=== PATIENT | female | born 1995 | race Caucasian/White ===

== ENCOUNTER 2018-06-16 16:37 | Emergency (ER) | END 2018-06-16 20:11 | disposition home or self-care (01) ==

== ENCOUNTER 2019-01-19 11:05 | Inpatient (IN) | payer MEDICAID ==
[~2019-01-19] VITALS: Ht 152.4 cm; Wt 71.5 kg
[2019-01-19] MEDS ORDERED: PREN1COM15 PO (11:13)
[2019-01-19] MEDS ORDERED: MISOPROSTOL 200 MCG TAB PR PRN (12:00)
[2019-01-19] MEDS ORDERED: OXYTOCIN 30 UNITS/LR 500 ML IV PRN (12:00)
[2019-01-19] MEDS ORDERED: CARBOPROST 250 MCG INJ IM PRN (12:00)
[2019-01-19] MEDS ORDERED: METHYLERGONOVINE 0.2 MG INJ IM PRN (12:00)
[2019-01-19] MEDS ORDERED: LIDOCAINE 1% (MPF) 30 ML INJ INJ PRN (12:00)
[2019-01-19] MEDS ORDERED: OXYTOCIN 30 UNITS/LR 500 ML IV SCH ×2 (12:00)
[2019-01-19] MEDS ORDERED: metFORMIN 500 MG TAB PO ONE (13:30)
[2019-01-19] MEDS: LACTATED RINGER'S 1,000 ML IV SCH ×3 (14:08→23:19)
[2019-01-19] MEDS: OXYTOCIN 30 UNITS/LR 500 ML IV SCH (18:41)
[2019-01-19] MEDS: DEXTROSE 5%-LR 1,000 ML IV SCH ×2 (20:54→22:10)
[2019-01-19] MEDS ORDERED: LACTATED RINGER'S 1,000 ML IV PRN (22:07)
[2019-01-19] MEDS ORDERED: IBUPROFEN 600 MG TAB PO PRN (22:30)
[2019-01-20] MEDS ORDERED: MINERAL OIL LIGHT 10 ML VIAL TOP PRN (04:00)
--- NOTE | 2019-01-20 04:01 | PREAC ---
Date/Time of Note Date/Time of Note DATE: 01/20/19 TIME: 04:00 Anesthesia Eval and Record Evaluation Time Pre-Procedure Interview DATE: 01/20/19 TIME: 04:00 Age 23 Sex female NPO: 8 hrs Preoperative diagnosis intrauterine Planned procedure labor epidural Past Medical History Past Medical History: Includes : : (1), Para: (0), Gestational age: (39), Gestational diabetes Surgery & Anesthesia Issues No known issue Meds Anticoagulation: No Beta Colt within 24 hr: No Reason Beta Colt not given: Pt. not on B-Colt Reported Medications Vit #105/Iron/FA/Dha (Prena1 True Combo Pack) 1 Each Combo..pkg, 1 EACH PO 01/19/19 Current Medications Lactated Ringer's 1,000 ml @ 125 mls/hr Q8H IV Last administered on 01/19/19at 23:19; Admin Dose 125 MLS/HR; Start 01/19/19 at 11:58 Lidocaine (Xylocaine 1% (Mpf)) 30 ml ONCE PRN INJ .EPISIOTOMY; Start 01/19/19 at 12:00 Oxytocin/Lactated Ringer's 500 ml @ 500 mls/hr ONCE POST IV ; Start 01/19/19 at 12:00 Oxytocin/Lactated Ringer's 500 ml @ 125 mls/hr POST IV ; Start 01/19/19 at 12:00 Oxytocin/Lactated Ringer's 500 ml @ 0 mls/hr ONCE PRN IV .VAGINAL BLEEDING; Start 01/19/19 at 12:00 Methylergonovine Maleate (Methergine) 0.2 mg ONCE PRN IM .VAGINAL BLEEDING; Start 01/19/19 at 12:00 Carboprost Tromethamine (Hemabate) 250 mcg ONCE PRN IM .VAGINAL BLEEDING; Start 01/19/19 at 12:00 Misoprostol (Cytotec) 1,000 mcg ONCE PRN ME .VAGINAL BLEEDING; Start 01/19/19 at 12:00 Dextrose/Lactated Ringer's 1,000 ml @ 125 mls/hr Q8H IV ; Start 01/19/19 at 13:02 Oxytocin/Lactated Ringer's 500 ml @ 0 mls/hr FOR AUGMENTATION IV Last administered on 01/19/19at 18:41; Admin Dose 1 MLS/HR; Start 01/19/19 at 18:00 Lactated Ringer's 1,000 ml @ 2,000 mls/hr Q30M PRN IV .ANESTHESIA Last administered on 01/20/19at 03:55; Admin Dose 2,000 MLS/HR; Start 01/19/19 at 22:07 Mineral Oil (Muri-Lube) 10 ml ONCE PRN TOP delivery; Start 01/20/19 at 04:00; Stop 01/20/19 at 06:00 Ibuprofen (Motrin) 600 mg ONCE PRN PO .PAIN 1-5; Start 01/19/19 at 22:30 Meds reviewed: Yes Allergies Coded Allergies: No Known Allergy (Unverified , 01/19/19) Allergies Reviewed: Yes Labs/Studies Labs Reviewed: Reviewed by anesthesiologist Result Diagram: 01/19/19 1200 01/19/19 1200 Laboratory Tests 01/19/19 12:00 Blood Bank Test 01/19/19 12:00 Antibody Screen NEGATIVE Blood Type O POSITIVE Rh Immune Globulin Candidate NO test: N/A Pre-procedure Exam Airway: Adequate mouth opening, Adequate thyromental dist Mallampati: Mallampati II Teeth: Normal Lung: Normal Heart: Normal ASA Physical Status ASA physical status: 2 Emergency: None Planned Anesthetic Neuraxial: Epidural Planned Pain Management Epidural, Parenteral pain med Pre-operative Attestations Prior to commencing anesthesia and surgery, the patient was re-evaluated, there was verification of: *The patient's identity *The results of appropriate recent lab work and preoperative vital signs *The above evaluation not changing prior to induction *Anesthetic plan, risk benefits, alternative and complications discussed with patient/family; questions answered; patient/family understands, accepts and wishes to proceed. BENY SMITH MD Jan 20, 2019 04:01
[2019-01-20] MEDS ORDERED: FENTAnyl 2MCG/ML-ROPIV 0.2% 100 ML ONE (04:07)
[2019-01-20] MEDS ORDERED: DIPHENHYDRAMINE 50 MG INJ IV PRN (04:30)
[2019-01-20] MEDS ORDERED: NALOXONE (0.4 MG/ML) INJ IV PRN (04:30)
[2019-01-20] MEDS ORDERED: ONDANSETRON 4 MG INJ IV PRN (04:30)
[2019-01-20] MEDS: DEXTROSE 5%-LR 1,000 ML IV SCH ×3 (04:46→21:02)
--- NOTE | 2019-01-20 05:37 | PAC ---
Date/Time of Note Date/Time of Note DATE: 01/20/19 TIME: 05:36 Post-Anesthesia Notes Post-Anesthesia Note Activity: WNL Respiratory function: WNL Cardiovascular function: WNL Mental status: Baseline Pain reasonably controlled: Yes Hydration appropriate: Yes Nausea/Vomiting absent: Yes Comments BP: 112/63 HR: 74 RR: 15 T: 98 SaO2: 99% BENY SMITH MD Jan 20, 2019 05:37
[2019-01-20] MEDS: OXYTOCIN 30 UNITS/LR 500 ML IV SCH (12:31)
[2019-01-20] MEDS: FENTAnyl 2MCG/ML-ROPIV 0.2% 100 ML BAG EPI SCH ×2 (13:50→20:15)
[2019-01-20] MEDS: LACTATED RINGER'S 1,000 ML IV SCH (20:21)
[2019-01-20] MEDS ORDERED: ACETAMINOPHEN 325 MG TAB PO ONE (20:30)
[2019-01-20] MEDS ORDERED: AMPICILLIN 2 GM/NS (PMX) 100 ML IV ONE (20:30)
[2019-01-21] MEDS ORDERED: OXYTOCIN 30 UNITS/LR 500 ML IV SCH
[2019-01-21] MEDS ORDERED: CEFAZOLIN 2 GM/50 ML (PMX) 50 ML IVPB ONE (00:10)
--- NOTE | 2019-01-21 00:29 | OPR ---
Operative Report Planned Procedure Procedure date Jan 21, 2019 Procedure(s) Primary Performed by see signature line Fur Repairer: FREDRICK ANDRE MD Anesthesiologist: ROSSANA BRANDT MD Pre-procedure diagnosis IUP at 39 weeks. Failure to progress. CPD. GDM [id number] Anesthesia Type: [id number] epidural Post-Procedure Post-procedure diagnosis Same Findings Viable baby girl weighing 4040 grams or 8# 15 oz, 20.25" long, and with Apgars of 8/9. Estimated Blood Loss: 600 - 700 mls Specimen(s) none Grafts/Implant(s) none Complication(s) Focal uterine atony with a small round area on the anterior abdominal wall where the placenta had been attached. Pt was given Methergine, Cytotec and Hemabate and the area finally began to contract. Pt Condition post procedure: stable Disposition: PACU Procedure Description Under satisfactory spinal anesthesia, the patient was prepped and draped and placed in a supine position, tilted to the left. Pfannenstiel incision was made removing the old scar, and carried through the subcutaneous tissue. Bleeders brought under control with electrocautery. Fascia incised to the length of the incision. Rectus muscles from the fascia, divided midline. Peritoneum exposed, entered through a transverse incision. Transverse incision was made in the lower segment of the uterus. Amniotic sac ruptured. Clear amniotic fluid noted. The head was easily delivered with gentle fundal pressure. The mouth and nares were bulb suctioned. The rest of the baby was then easily delivered. The cord was doubly clamped and cut. The baby was brought to the warmer and the team for immediate attention. The placenta was delivered manually in tact. Uterine cavity was cleaned with wet sponge and drainage established. Uterus closed in 2 layers using #1 chromic in continuous fashion. There was not a lot of noticeable bleeding however there was a round 6 cm area on the anterior abdominal wall where the placenta had been implanted that exhibited focal uterine atony. The rest of the uterus contracted well. The pt was given the usual Pitocin and then also a dose of Methergine, 800mcg of Cytotec and a dose of Hemabate. The area eventually contracted. Peritoneal cavity irrigated with warm saline. Sponge, needle and instrument count reported to be correct. Abdominal peritoneum closed with 2-0 Chromic continuously. Rectus muscle approximated with the same suture. Fascia closed with 0-Vicryl. The subcutaneous tissue was irrigated and closed with 2-0 Chromic and skin was closed with 3-0 Monocryl in a subcuticular stitch. Steristrips with Mastosol were placed. Estimated blood loss 700 mL. Urine was clear JOLEEN BEY MD Jan 21, 2019 00:29
[2019-01-21] MEDS ORDERED: AMPICILLIN 1 GM/NS (PMX) 50 ML IV SCH (00:30)
--- NOTE | 2019-01-21 00:30 | HP ---
Date/Time of Note Date/Time of Note DATE: 01/21/19 TIME: 00:29 OB - History Hx of Present Free Text/Dictation 23 y.o. G1 with an IUP at 36w 6d came in with what seemed to be a clear h/o rupture of membranes. We could not verify it as there was a forebag, no pooling and the nitrazine test was negative however I decided to keep her as she was going to be induced the following day for gestational diabetes. Chief Complaint: SROM Estimated Due Date: Jan 27, 2019 : 1 Para: 0 Care: Good Care Ultrasounds: Normal mid trimester US Obstetrical Complications: Gestational Diabetes (On Metformin 500 mg q day) Medical Complications: None Other Concerns: PMHx: none. PSHx: none. NKDA. Past Family/Social History * Past Medical, Surgical, Family and Obstetric Histories reviewed from chart. Blood Type: O+ Rubella: immune RPR/VDRL: Negative GBS Status: Negative HBsAG: Negative OB Admission Exam Vital Signs Vital Signs Vital Signs Date Temp Pulse Resp B/P (MAP) Pulse Ox O2 O2 Flow FiO2 Time Delivery Rate 01/20/19 100.7 20:42 Physical Exam HEENT: WNL Heart: Rhythm Normal Lungs: Clear Abdomen: WNL Extremities: Normal Reflexes: Normal Cervical Dilatation: 3cm Effacement: Other (90%) Station: -2 Membranes: Intact Amniotic Fluid: Clear Heart Rate: 130's Accelerations: Accelerations Present Decelerations: No Decelerations Varibility: Moderate Contractions on Admission: >10 Minutes Apart Intensity: Mild Last 72 hourBlood Glucose Bedside Glucose - 72 Hours Test 01/19/19 16:17 01/19/19 20:27 01/20/19 03:56 01/20/19 08:47 Bedside 99 84 77 100 Glucose mg/dL (70-220) mg/dL (70-220) mg/dL (70-220) mg/dL (70-220) Test 01/20/19 13:01 01/20/19 17:06 01/20/19 21:00 Bedside 89 93 79 Glucose mg/dL (70-220) mg/dL (70-220) mg/dL (70-220) Last 72 hours Lab Results CBC & BMP 01/19/19 12:00 OB Assessment/Plan Reason for admission: induction of labor Other Assessment: Gestational diabetes. Plan: Induction Induction Method: per Pitocin Protocol JOLEEN BEY MD Jan 21, 2019 00:30
[2019-01-21] MEDS ORDERED: OXYTOCIN 10 UNIT INJ ONE ×4 (00:33→01:15)
[2019-01-21] MEDS ORDERED: PHENYLephrine (100 MCG/ML) 5ML SYG ONE (00:59)
[2019-01-21] MEDS ORDERED: morphine SULFATE/PF (10 MG/10 ML) INJ ONE (01:02)
[2019-01-21] MEDS ORDERED: FENTAnyl 50 MCG/ML VIAL ONE ×2 (01:11→01:19)
[2019-01-21] MEDS ORDERED: MIDAZOLAM 1 MG/ML 2 ML INJ ONE (01:17)
[2019-01-21] MEDS ORDERED: OXYCODONE/ACETAMINOPHEN (5/325) TAB PO PRN (02:00)
[2019-01-21] MEDS ORDERED: CARBOPROST 250 MCG INJ IM PRN (02:00)
[2019-01-21] MEDS ORDERED: OXYTOCIN 30 UNITS/LR 500 ML IV PRN (02:00)
[2019-01-21] MEDS ORDERED: MISOPROSTOL 200 MCG TAB PR PRN (02:00)
[2019-01-21] MEDS ORDERED: NACL 0.9% 3 ML SYG IV SCH (02:00)
[2019-01-21] MEDS ORDERED: CEFAZOLIN 2 GM/50 ML (PMX) 50 ML IVPB SCH ×2 (02:00)
[2019-01-21] MEDS ORDERED: METHYLERGONOVINE 0.2 MG INJ IM PRN (02:00)
[2019-01-21] MEDS ORDERED: LANOLIN HPA 1 PKT TOP PRN (02:00)
--- NOTE | 2019-01-21 02:17 | PAC ---
Date/Time of Note Date/Time of Note DATE: 01/21/19 TIME: 02:17 Post-Anesthesia Notes Post-Anesthesia Note Last documented vital signs Vital Signs Date Temp Pulse Resp B/P (MAP) Pulse Ox O2 O2 Flow FiO2 Time Delivery Rate 01/20/19 100.7 20:42 Activity: WNL Respiratory function: WNL Cardiovascular function: WNL Mental status: Baseline Pain reasonably controlled: Yes Hydration appropriate: Yes Nausea/Vomiting absent: Yes Comments BP:134/56,P:88,Spo2:100%, T:98,8 ROSSANA BRANDT MD Jan 21, 2019 02:17
[2019-01-21] MEDS ORDERED: NALOXONE (0.4 MG/ML) INJ IV PRN (02:30)
[2019-01-21] MEDS ORDERED: ONDANSETRON 4 MG INJ IV PRN (02:30)
[2019-01-21] MEDS ORDERED: DIPHENHYDRAMINE 50 MG INJ IV PRN (02:30)
[2019-01-21] MEDS ORDERED: morphine 2 MG INJ IV PRN (02:30)
[2019-01-21] MEDS: OXYTOCIN 30 UNITS/LR 500 ML IV SCH ×3 (02:52→22:00)
[2019-01-21] MEDS: KETOROLAC 30 MG INJ IV PRN ×4 (03:05→23:54)
[2019-01-21] MEDS ORDERED: ACETAMINOPHEN 325 MG TAB PO PRN (03:30)
[2019-01-21] MEDS: LACTATED RINGER'S 1,000 ML IV SCH ×3 (03:36→19:30)
[2019-01-21] MEDS: ACETAMINOPHEN 325 MG TAB PO PRN (03:55)
[2019-01-21 04:30] VITALS: BP 115/52; PULSE 91; RESP 20
[2019-01-21] MEDS ORDERED: MISOPROSTOL 200 MCG TAB SL ONE (06:00)
[2019-01-21] MEDS: IBUPROFEN 800 MG TAB PO SCH ×3 (06:00→22:00)
[2019-01-21 08:20] VITALS: BP 116/57; PULSE 89; RESP 17
[2019-01-21] MEDS: CEFAZOLIN 2 GM/50 ML (PMX) 50 ML IVPB SCH ×3 (08:26→23:35)
[2019-01-21 12:06] VITALS: BP 105/58; PULSE 73; RESP 17
--- NOTE | 2019-01-21 14:04 | QN ---
Documentation Comment POD #0 Pt feels much better but uterus still feels tender.Bleeding is minimal. is going well. T= 97.2 BP 105/58 Incision is clean, dry and intact.Uterus is at the umbilicus. Lochia minimal. Ext 2+ edema, NT. WBC 14.8 Hgb 9.2 Plts 116K P: Continue care. JOLEEN BEY MD Jan 21, 2019 14:04
[2019-01-21 15:20] VITALS: BP 116/58; PULSE 82; RESP 16
[2019-01-21 19:50] VITALS: BP 117/77; PULSE 77; RESP 18
[2019-01-21 23:57] VITALS: BP 117/63; PULSE 89; RESP 18
[2019-01-22] MEDS: OXYCODONE/ACETAMINOPHEN (5/325) TAB PO PRN ×3 (02:59→23:29)
[2019-01-22] MEDS: LACTATED RINGER'S 1,000 ML IV SCH (03:30)
[2019-01-22 03:50] VITALS: BP 109/56; PULSE 68; RESP 18
[2019-01-22] MEDS: IBUPROFEN 800 MG TAB PO SCH ×3 (05:48→22:12)
[2019-01-22 08:00] VITALS: BP 95/56; PULSE 66; RESP 18
--- NOTE | 2019-01-22 13:36 | QN ---
Documentation Comment POD #1 Pt is but now is supplementing due to the baby having a little jaundice. Pt still moving slow to get up to the BR. Taking pain meds regularly. T- 98.0 BP 95/56 Fundus firm, at umb. Dressing clean, dry and intact. Lochia moderate. WBC 12.5 Hgb 8.4 Plts 110K P: Continue care. Will repeat the plt count on 3/17 AM. JOLEEN BEY MD Jan 22, 2019 13:36
[2019-01-22 16:00] VITALS: BP 92/51; PULSE 75; RESP 19
[2019-01-22] MEDS ORDERED: VITAMIN A & D 5 GM OINT PACKET TOP ONE (19:34)
[2019-01-22 20:20] VITALS: BP 112/60; PULSE 75; RESP 18
[2019-01-22] MEDS: ACETAMINOPHEN 325 MG TAB PO PRN (21:03)
[2019-01-23 04:20] VITALS: BP 118/70; PULSE 78; RESP 18
[2019-01-23] MEDS: IBUPROFEN 800 MG TAB PO SCH ×3 (05:58→22:19)
[2019-01-23 09:15] VITALS: BP 122/73; PULSE 61; RESP 18
[2019-01-23 16:25] VITALS: BP 122/68; PULSE 60; RESP 18
[2019-01-23 20:01] VITALS: BP 130/72; PULSE 66; RESP 18
[2019-01-24 04:20] VITALS: BP 124/80; PULSE 66; RESP 18
[2019-01-24] MEDS: IBUPROFEN 800 MG TAB PO SCH ×2 (05:44→14:12)
[2019-01-24] MEDS ORDERED: DIPHTH/TET/ACEL PERTUSS (ADULT) 0.5 ML VIAL IM* ONE (09:00)
[2019-01-24 09:40] VITALS: BP 122/69; PULSE 65; RESP 16
--- NOTE | 2019-01-24 15:53 | PD.PPDC ---
MASTER RIGGER Discharge Instruction Condition [id number] Patient Condition: [id number] Good Diet [id number] Diet: Fqulj9q Resume Regular Diet Activity/Restrictions [id number] Activity: Ygrbn5x Bedrest May be up to bathroom May be up for meals May Shower Wyfcz7De Restrictions: Drzhs4z No Exercising No Lifting No Driving Minimize Walking Minimize Stair-climbing No Sexual Activity Nothing in the Vagina No [place] No Tampons, douche Wound/Drain Care Instructions [id number] Wound/Drain Care Bxvex7j Remove Steri Strips in 2 Instructions: weeks Keep clean and dry Follow-up Follow-up with Physician: 2, Week/Weeks Return to clinic for Cisql9Pr [facility] COORDINATOR Instructions: Xvwim2h Fever greater than 101 Chills Worsening abdominal pain Excessive Vaginal Bleeding [id number] OB Instructions: Xvxls8m Breast Tenderness Depression [id number] Surgical Instructions: Kmymo1k Incisional Drainage Incisional Redness JOLEEN BEY MD Jan 24, 2019 15:53
[2019-01-24] MEDS ORDERED: IBUP800T48 PO (15:54)
[2019-01-24] MEDS ORDERED: OXYC-438 PO (15:54)
--- NOTE | 2019-01-24 15:57 | DS ---
Date/Time of Note Date/Time of Note DATE: 01/24/19 TIME: 15:55 Obstetrical Discharge Record Final Diagnosis Final Diagnosis: Term delivered Section Section: Primary Primary Indication Macrosomia, cephalopelvic disproportion, failure to progress Complications Gestational Diabetes Augmentation: Yes Induction: No Condition on Discharge Physical Assessment Last Vitals: T=98.1 BP 122/61 Voiding: Yes Bowel Movement: Yes Breast: Filling Fundus: Firm Abdomen and Incision: Clean, dry and intact. Calf Tenderness: No Patient Condition: Good JOLEEN BEY MD Jan 24, 2019 15:57
[2019-01-24 16:00] VITALS: BP 137/72; PULSE 64; RESP 18
--- NOTE | 2019-02-01 11:22 | DELSUM ---
Delivery Summary A-C Datetime Report Generated by CPN: 02/01/2019 11:20 DELIVERY PERSONNEL Alterations Supervisor: Long, Lisbeth MATERNAL INFORMATION Delivery Anesthesia: Epidural Medications in Delivery: SEE ANESTHESIOLOGIST FLOW SHEET Delivery QBL (ml): 600 Placenta Cultured: No Maternal Complications: Prolong Labor >20Hrs LABOR SUMMARY EDC: 01/27/2019 00:00 No. Babies in Womb: 1 Attempted: No Labor Anesthesia: Epidural LABOR INFORMATION Reason for Induction: Not Applicable Onset of Labor: 01/19/2019 00:00 Oxytocin: Augmentation Group B Beta Strep: Negative Steroids Given: None Reason Steroids Not Administered: Not Applicable MEMBRANES Membranes Rupture Method: Artificial Rupture of Membranes: 01/18/2019 23:00 Length of Rupture (hr): 49.73 Amniotic Fluid Color: Clear Amniotic Fluid Amount: Moderate Amniotic Fluid Odor: None STAGES OF LABOR Stage 3 hr: 0 Stage 3 min: 2 Total Time in Labor hr: 48 Total Time in Labor min: 46 CSECTION DELIVERY Primary Indication: Failure of Descent Other Primary Indication: CPD CSection Urgency: Non Elective CSection Incidence: Primary Labor: Labor Elective: Nonelective CSection Incision: Lower Uterine Transverse BABY A INFORMATION Delivery Date/Time: 01/21/2019 00:44 Method of Delivery: Born in Route : No : N/A Forceps: N/A Vacuum Extraction: N/A Shoulder Dystocia : N/A SHOULDER DYSTOCIA BABY A Infant Delivery Date/Time: 01/21/2019 00:44 PRESENTATION/POSITION BABY A Presentation: Cephalic Cephalic Presentation: Vertex Breech Presentation: N/A PLACENTA INFORMATION BABY A Placenta Delivery Time : 01/21/2019 00:46 Placenta Method of Delivery: Manual Removal Placenta Status: Delivered SCORES BABY A Heart Rate 1 min: >100 bpm Resp Effort 1 min: Good Cry Reflex Irritability 1 min: Cough/Sneeze/Pulls Away Muscle Tone 1 min: Active Motion Color 1 min: Blue/Pale Resuscitation Effort 1 min: Tactile Stimulation SCORE 1 MIN: 8 Heart Rate 5 min: >100 bpm Resp Effort 5 min: Good Cry Reflex Irritability 5 min: Cough/Sneeze/Pulls Away Muscle Tone 5 min: Active Motion Color 5 min: Body Noble, Extremit Blue Resuscitation Effort 5 min: Tactile Stimulation SCORE 5 MIN: 9 INFANT INFORMATION BABY A Gestational Age at Delivery: 39.1 Gestational Status: Full Term- 39- 40.6 Weeks Outcome : Liveborn Condition : Stable Sex: Female IDENTIFICATION/MEDS BABY A ID Band Number: [id number] ID Band Location: Right Leg; Left Arm Sensor Applied: Yes Sensor Number: [id number] Sensor Location : Cord Clamp Vitamin K Given : Not Given Erythromycin Given: Not Given WEIGHT/LENGTH BABY A Birthweight (gm): 4040 Weight (lb): 8 Weight (oz): 15 Length (in): 20.25 Length (cm): 51.44 CORD INFORMATION BABY A No. Cord Vessels: 3 Nuchal Cord : N/A Cord Blood Taken: Yes Suction: Mouth; Nose ASSESSMENT BABY A Complications: None Physical Findings at Delivery: Within Normal Limits Respirations: Appears Normal Trash Collector/ALS Called : No Care By: Linda MIRANDA RN Transferred To: Nursery
== END 2019-01-24 18:30 | disposition home or self-care (01) | DRG 788 ==
LOC: OBT 11:05 → L-D 11:07 → OBT 11:35 → L-D 11:35 → MERGE 11:35 → L-D 11:50 → PP1 01-21 04:22
PROVIDERS: ADMIT Obstetrics & Gynecology; ATTEND Obstetrics & Gynecology
PROC: 10D00Z1 Extraction of Products of Conception, Low, Open Approach (ICD-10-PCS; principal; 2019-01-21)
PROC: 3E033VJ Introduction of Other Hormone into Peripheral Vein, Percutaneous Approach (ICD-10-PCS; 2019-01-21)
DX: O33.5XX0 Maternal care for disproportion due to unusually large fetus, not applicable or unspecified (principal); O24.425 Gestational diabetes mellitus in childbirth, controlled by oral hypoglycemic drugs; Z3A.36 36 weeks gestation of pregnancy; Z37.0 Single live birth; O61.0 Failed medical induction of labor
CPT/HCPCS: 62319; 76815; 82947; 82962; 85025; 85610; 85730; 86592; 86850; 86900; 86901; 87340; 90686; 99464; G0463; J0290; J0690; J1885; J2210; J2250; J2270; J2274; J2370; J2405; J2590; J3010; J7120; J7121